=== PATIENT | female | born 1970 | race Caucasian/White ===

== ENCOUNTER 2017-04-25 19:16 | Emergency (ER) | payer OTHER ==
[2017-04-25] MEDS ORDERED: Morphine 2 MG/ML Syringe IVPUSH ONE (19:33)
[2017-04-25] MEDS ORDERED: Ondansetron 4 MG/2 ML SDV IVPUSH ONE (19:33)
[2017-04-25] MEDS ORDERED: Ketorolac 30 MG/ML SDV IVPUSH ONE (19:33)
[2017-04-25] MEDS ORDERED: Sodium Chloride 0.9% 1,000 ML IV ONE (19:33)
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
[2017-04-25] MEDS ORDERED: Ketorolac 60 MG/2 ML SDV IM ONE (19:55)
[2017-04-25] MEDS ORDERED: Ondansetron 4 MG Tab.DIS PO ONE (19:55)
[2017-04-25] MEDS ORDERED: Morphine 2 MG/ML Syringe IM ONE (19:55)
[2017-04-25 20:48] VITALS: BP 113/57
--- NOTE | 2017-04-26 15:17 | CR ---
EXAM DATE: 04/25/17 PATIENT'S AGE: 46 Patient: JOSIE ROSE Facility: [place], [place] Site . Site : 1970 Study: XRay Extremity Right WRIST [id number] 7:51:15 PM Ordering Physician: Doctor Pisano Final Report: Three views of the right wrist. INDICATION: Injury IMPRESSION: Comminuted distal radial fracture with extension to the articular margin. Minimal displacement. No angulation. Slight irregularity of the articular margin at the level of fracture. Early degenerative narrowing distal radial ulnar joint. Dictated by Felipe Ferrer MD @ Apr 25 2017 7:54PM (Electronic Signature) Report Signed by Proxy. MERCEDES
== END 2017-04-25 20:55 | disposition home or self-care (01) ==
LOC: MW.ED 19:16
DX: S52.501A Unspecified fracture of the lower end of right radius, initial encounter for closed fracture (principal); V28.4XXA Motorcycle driver injured in noncollision transport accident in traffic accident, initial encounter; Y92.410 Unspecified street and highway as the place of occurrence of the external cause
CPT/HCPCS: 29125; 73110; 96372; 99283; A9270; J1885; J2270; 99284

== ENCOUNTER 2018-12-26 14:01 | Emergency (ER) | payer BC ==
--- NOTE | 2018-12-26 14:16 | EDM.PDOC ---
ED HPI GENERAL MEDICAL PROBLEM - General Chief Complaint: Back Pain or Injury Stated Complaint: BACK PAIN Time Seen by Provider: 12/26/18 14:02 Source of Information: Reports: Patient History Limitations: Reports: No Limitations - History of Present Illness INITIAL COMMENTS - FREE TEXT/NARRATIVE: History of present illness: []Patient's had 3 weeks of upper back pain and has tried multiple alternative treatments that have not worked. She went [facility] today who sent her here. Patient is very aggressive and angry using profane language. Review of systems: As per history of present illness and below otherwise all systems reviewed and negative. Past medical history: As per history of present illness and as reviewed below otherwise noncontributory. Surgical history: As per history of present illness and as reviewed below otherwise noncontributory. Social history: No reported history of drug or alcohol abuse. Family history: As per history of present illness and as reviewed below otherwise noncontributory. Physical exam: General: Well developed, well nourished in NAD, visably irritated HEENT: Atraumatic, normocephalic, pupils reactive, mucous membranes moist, throat clear, neck supple, nontender, trachea midline. Lungs: no resp distress, chest nontender. Heart: regular Abdomen:, nondistended, Pelvis: Stable Genitourinary: Deferred. Rectal: Deferred. Extremities: Atraumatic, JOINER, Neurovascular unremarkable. Neuro: Awake, alert, oriented. Cranial nerves II through XII unremarkable. Cerebellum unremarkable. Motor and sensory unremarkable throughout. Exam nonfocal.ambulating in room Skin:warm and dry Diagnostics: Vital signs stable, Patient requested x-ray, T-spine ordered Therapeutics: Toradol, she refused Flexeril because she could not find a ride home ED Course: Stable Impression: Upper back pain Prescriptions: Tramadol, Flexeril Plan: Take meds as directed, follow up with your primary care physician, return to ER if symptoms worsen or change. Definitive disposition and diagnosis as appropriate pending reevaluation and review of above. Right Upper Back Pain Score (Numeric/FACES): 9 - Related Data Allergies Allergy/AdvReac Type Severity Reaction Status Date / Time No Known Allergies Allergy Verified 12/26/18 14:19 Home Meds: Home Meds Cyclobenzaprine [Flexeril] 10 mg PO BID PRN #12 tab 12/26/18 [Rx] traMADol HCl [Tramadol HCl] 50 mg PO Q6H PRN #16 tablet 12/26/18 [Rx] Past Medical History - Past Health History Medical/Surgical History: Denies Medical/Surgical History HEENT History: Reports: None Cardiovascular History: Reports: None Respiratory History: Reports: None Gastrointestinal History: Reports: None Genitourinary History: Reports: None 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 ED EXAM, UPPER BACK/NECK PAIN - Physical Exam Exam: See Below (See history of present illness) Course - Vital Signs Last Recorded V/S: Last Vital Signs Temp 97.1 F 12/26/18 14:13 Pulse 85 12/26/18 14:13 Resp 18 12/26/18 14:13 BP 137/70 12/26/18 14:13 Pulse Ox 96 12/26/18 14:13 - Orders/Labs/Meds Meds: Medications Discontinued Medications Generic Name Dose Route Start Last Admin Trade Name Freq PRN Reason Stop Dose Admin Cyclobenzaprine HCl 10 mg 12/26/18 14:24 12/26/18 14:53 Flexeril PO 12/26/18 14:25 Not Given ONETIME ONE Ketorolac Tromethamine 60 mg 12/26/18 14:24 12/26/18 14:35 Toradol IM 12/26/18 14:25 60 mg ONETIME ONE Administration Departure - Departure Time of Disposition: 15:33 Disposition: Home, Self-Care 01 Condition: Good Clinical Impression: Upper back pain - Discharge Information *PRESCRIPTION DRUG MONITORING PROGRAM REVIEWED*: No *COPY OF PRESCRIPTION DRUG MONITORING REPORT IN PATIENT NERIS: No Prescriptions: Cyclobenzaprine [Flexeril] 10 mg PO BID PRN #12 tab PRN Reason: Pain traMADol HCl [Tramadol HCl] 50 mg PO Q6H PRN #16 tablet PRN Reason: Pain Instructions: Acute Back Pain, Adult Referrals: PCP,None [Primary Care Provider] - Forms: ED Department Discharge Additional Instructions: The following information is given to patients seen in the emergency department who are being discharged to home. This information is to outline your options for follow-up care. We provide all patients seen in our emergency department with a follow-up referral. The need for follow-up, as well as the timing and circumstances, are variable depending upon the specifics of your emergency department visit. If you don't have a primary care physician on staff, we will provide you with a referral. We always advise you to contact your personal physician following an emergency department visit to inform them of the circumstance of the visit and for follow-up with them and/or the need for any referrals to a consulting specialist. The emergency department will also refer you to a specialist when appropriate. This referral assures that you have the opportunity for follow-up care with a specialist. All of these measure are taken in an effort to provide you with optimal care, which includes your follow-up. Under all circumstances we always encourage you to contact your private physician who remains a resource for coordinating your care. When calling for follow-up care, please make the office aware that this follow-up is from your recent emergency room visit. If for any reason you are refused follow-up, please contact the [facility] Emergency Department at and asked to speak to the emergency department charge nurse. Take meds as directed, follow up with your primary care physician, return to ER if symptoms worsen or change. [facility] [address] [place] [id number]
[2018-12-26 14:19] VITALS: BP 137/70
[2018-12-26] MEDS: Ketorolac 60 MG/2 ML SDV IM ONE (14:35)
[2018-12-26] MEDS: Cyclobenzaprine 10 MG Tab PO ONE (14:53)
--- NOTE | 2018-12-26 15:23 | CR ---
EXAMINATION: Thoracic spine HISTORY: Patient request COMPARISON: None TECHNIQUE: AP and lateral views FINDINGS: The thoracic spinal alignment is normal. The vertebral body heights and disc spaces appear maintained. Bone mineralization is normal. No fracture or acute osseous abnormality. IMPRESSION: Grossly unremarkable thoracic spine.
== END 2018-12-26 15:35 | disposition home or self-care (01) ==
LOC: MW.ED 14:01
DX: M54.6 Pain in thoracic spine (principal)
CPT/HCPCS: 72070; 96372; 99283; J1885

== ENCOUNTER 2019-02-26 19:30 | Emergency (ER) | payer BC ==
[2019-02-26] MEDS ORDERED: Bacitracin Oint 1 GM U/D Packet TOP ONE (20:09)
[2019-02-26] MEDS ORDERED: Diphtheria,Pertussis(Acell),Tetanus Vaccine 0.5 ML Syringe IM ONE (20:09)
--- NOTE | 2019-02-26 20:09 | EDM.PDOC ---
ED HPI GENERAL MEDICAL PROBLEM - General Chief Complaint: Laceration Stated Complaint: PT CUT LT THUMB Time Seen by Provider: 02/26/19 19:53 - History of Present Illness INITIAL COMMENTS - FREE TEXT/NARRATIVE: HISTORY AND PHYSICAL: History of present illness: The patient is a 48-year-old female who is unsure of her last tetanus shot and was in her usual state of good health when she cut her left thumb on a kitchen knife this evening. She had no systemic complaints prior to these events and has no complaints of any pain except at the laceration site. She is able to move her thumb and she is right-hand dominant. Review of systems: As per history of present illness and below otherwise all systems reviewed and negative. Past medical history: As per history of present illness and as reviewed below otherwise noncontributory. Surgical history: As per history of present illness and as reviewed below otherwise noncontributory. Social history: No reported history of drug or alcohol abuse. Family history: As per history of present illness and as reviewed below otherwise noncontributory. Physical exam: HEENT: Atraumatic, normocephalic, negative for conjunctival pallor or scleral icterus, mucous membranes moist, throat clear, neck supple, nontender, trachea midline. Lungs: Clear to auscultation, breath sounds equal bilaterally, chest nontender. Heart: S1S2, regular rate and rhythm no overt murmurs Abdomen: Deferred Pelvis: Deferred Genitourinary: Deferred. Rectal: Deferred. Extremities: Atraumatic, full range of motion of all extremities with the exception of the left thumb were as on the palmar surface of the proximal phalanx soft tissue there is a linear 2 cm laceration to the subcutaneous with bruising. The patient is able to flex and extend. Neurovascular unremarkable. Neuro: Awake, alert, oriented. Cranial nerves II through XII unremarkable. Cerebellum unremarkable. Motor and sensory unremarkable throughout. Exam nonfocal. Diagnostics: none Therapeutics: Tdap, lidocaine without epinephrine for suture repair, bacitracin and tube gauze Procedure note: After the procedure was explained to the patient and the wound was cleansed by nursing 1% lidocaine without epinephrine was infused in a local fashion. The wound was explored and no foreign bodies were appreciated. Simple interrupted sutures were placed for a total number of # 4 of 4-0 nylon. There were no complications and the patient tolerated the procedure well. Hemostasis was achieved and bacitracin and tube gauze was applied by nursing. Impression: Left thumb laceration Definitive disposition and diagnosis as appropriate pending reevaluation and review of above. 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 Musculoskeletal History: Reports: None Neurological History: Reports: None Psychiatric History: Reports: None Endocrine/Metabolic History: Reports: None Dermatologic History: Reports: None - Infectious Disease History Infectious Disease History: Reports: Chicken Pox - Past Surgical History HEENT Surgical History: Reports: Tonsillectomy GI Surgical History: Reports: Cholecystectomy, Hernia, Abdominal Female Surgical History: Reports: None Social & Family History - Family History Family Medical History: Noncontributory - Tobacco Use Smoking Status *Q: Never Smoker - Recreational Drug Use Recreational Drug Use: No ED ROS GENERAL - Review of Systems Review Of Systems: ROS reveals no pertinent complaints other than HPI. ED EXAM, SKIN/RASH Exam: See Below (See dictation) Course - Vital Signs Last Recorded V/S: Last Vital Signs Temp 35.8 C 02/26/19 19:35 Pulse 69 02/26/19 19:35 Resp 18 02/26/19 19:35 BP 124/70 02/26/19 19:35 Pulse Ox 95 02/26/19 19:35 - Orders/Labs/Meds Orders: Active Orders 24 hr Category Date Time Status Vaccines to be Administered [RC] PER UNIT ROUTINE Care 02/26/19 20:10 Active Meds: Medications Discontinued Medications Generic Name Dose Route Start Last Admin Trade Name Freq PRN Reason Stop Dose Admin Bacitracin 1 dose 02/26/19 20:09 02/26/19 20:21 Bacitracin Oint 1 Gm TOP 02/26/19 20:10 1 dose ONETIME ONE Administration Diphtheria/Tetanus/Acell Pertussis 0.5 ml 02/26/19 20:09 02/26/19 20:21 Adacel IM 02/26/19 20:10 0.5 ml .ONCE ONE Administration Lidocaine HCl 5 ml 02/26/19 20:08 02/26/19 20:21 Xylocaine-Mpf 1% INJECT 02/26/19 20:09 5 ml ONETIME ONE Administration Departure - Departure Time of Disposition: 21:08 Disposition: Home, Self-Care 01 Condition: Good Clinical Impression: Laceration of thumb Qualifiers: Encounter type: initial encounter Damage to nail status: without damage Foreign body presence: without foreign body Laterality: left Qualified Code(s): S61.012A - Laceration without foreign body of left thumb without damage to nail , initial encounter - Discharge Information Referrals: Wali Celestin DO [Primary Care Provider] - Forms: ED Department Discharge Additional Instructions: The following information is given to patients seen in the emergency department who are being discharged to home. This information is to outline your options for follow-up care. We provide all patients seen in our emergency department with a follow-up referral. The need for follow-up, as well as the timing and circumstances, are variable depending upon the specifics of your emergency department visit. If you don't have a primary care physician on staff, we will provide you with a referral. We always advise you to contact your personal physician following an emergency department visit to inform them of the circumstance of the visit and for follow-up with them and/or the need for any referrals to a consulting specialist. The emergency department will also refer you to a specialist when appropriate. This referral assures that you have the opportunity for followup care with a specialist. All of these measure are taken in an effort to provide you with optimal care, which includes your followup. Under all circumstances we always encourage you to contact your private physician who remains a resource for coordinating your care. When calling for followup care, please make the office aware that this follow-up is from your recent emergency room visit. If for any reason you are refused follow-up, please contact the [facility] emergency department at and ask to speak to the emergency department charge nurse. [facility] Primary care- Internal Medicine and Family [address] [id number] Please keep dressing on that was placed by nursing for 24 hours then remove and cleanse with mild soap and water pat dry. Please cleanse the area as described with mild soap and water at least 2-3 times per day and apply bacitracin or Neosporin. If you need to cover the area please use gauze no Band-Aids. Sutures should be removed in 7 days and return to the ED for that. Return to ED sooner for any issues with redness swelling or drainage. Is also scheduled follow-up appointment with your provider or one of ours in the clinic for further care and evaluation - My Orders Last 24 Hours: My Active Orders 02/26/19 20:10 Vaccines to be Administered [RC] PER UNIT ROUTINE - Assessment/Plan Last 24 Hours: My Active Orders 02/26/19 20:10 Vaccines to be Administered [RC] PER UNIT ROUTINE
[2019-02-26 21:20] VITALS: BP 120/67
== END 2019-02-26 21:15 | disposition home or self-care (01) ==
LOC: MW.ED 19:30
DX: S61.012A Laceration without foreign body of left thumb without damage to nail, initial encounter (principal); Z23 Encounter for immunization; Z90.49 Acquired absence of other specified parts of digestive tract; Z98.890 Other specified postprocedural states; W26.0XXA Contact with knife, initial encounter
CPT/HCPCS: 12001; 90471; 90715; 99282; J2001